=== PATIENT | female | born 1965 | race Caucasian/White ===

== ENCOUNTER 2018-03-22 08:42 | Outpatient (CLI) | payer OTHER ==
[2018-03-22 09:15] LABS: BASOPHILS % (AUTO) 0.2 % (0-1); EOSINOPHILS # (AUTO) 0.3 X10'3 (0-0.9); EOSINOPHILS % (AUTO) 3.6 % (0-6); HEMATOCRIT 38.5 % (35.0-45.0); LYMPHOCYTES # (AUTO) 1.7 X10'3 (1.1-4.8); LYMPHOCYTES % (AUTO) 22.7 % (21-51); MEAN CORPUSCULAR HEMOGLOBIN 27.7 PG (27.0-31.0); MEAN CORPUSCULAR HGB CONC 33.9 % (33.0-36.5); MEAN CORPUSCULAR VOLUME 81.7 FL (78-98); MEAN PLATELET VOLUME 7.8 FL (7.4-10.4); MONOCYTES # (AUTO) 0.5 X10'3 (0-0.9); MONOCYTES % (AUTO) 6.4 % (2-12); NEUTROPHILS % (AUTO) 67.1 % (42-75); PLATELET COUNT 220 X10'3 (140-440); RED BLOOD COUNT 4.71 X10'6 (4.20-5.60); RED CELL DISTRIBUTION WIDTH 15.2 % (11.5-14.5); WHITE BLOOD COUNT 7.5 X10'3 (4.5-11.0)
[2018-03-22 09:18] LABS: CLARITY,URINE CLEAR (Clear); COLOR,URINE YELLOW (Yellow); GLUCOSE, URINE NEGATIVE (Neg); KETONES,URINE NEGATIVE (Neg); LEUKOCYTE ESTERASE ,URINE NEGATIVE (Neg); NITRITES, URINE NEGATIVE (Neg); OCCULT BLOOD,URINE NEGATIVE (Neg); PROTEIN,URINE NEGATIVE (Neg)
[2018-03-22 09:20] LABS: UA COLLECTION TYPE CLN CATCH MIDSTREAM
[2018-03-22 09:51] LABS: ALANINE AMINOTRANSFERASE 19 U/L (12-78); ALBUMIN 3.5 G/DL (3.4-5.0); ALBUMIN/GLOBULIN RATIO 0.9 (1.1-1.5); ALKALINE PHOSPHATASE 64 IU/L (46-116); ANION GAP 7 (8-16); ASPARTATE AMINO TRANSFERASE 13 U/L (10-37); BILIRUBIN,TOTAL 0.5 MG/DL (0.1-1.0); BLOOD UREA NITROGEN 17 MG/DL (7-18); BUN/CREATININE RATIO 19.1 (6.6-38.0); CALCIUM 8.8 MG/DL (8.5-10.1); CHLORIDE 105 MMOL/L (99-107); CHOLESTEROL 181 MG/DL (0-200); CREATININE 0.89 MG/DL (0.40-0.90); GLUCOSE 119 MG/DL (70-104); HDL CHOLESTEROL 36 MG/DL (35-60); LDL CHOLESTEROL 133 MG/DL (50-100); POTASSIUM 4.1 MMOL/L (3.5-5.1); SODIUM 138 MMOL/L (135-145); TOTAL CARBON DIOXIDE 26.4 MMOL/L (24-32); TOTAL PROTEIN 7.3 G/DL (6.4-8.2); TRIGLYCERIDES 88 MG/DL (20-135); eGFR 67 ML/MIN
== END 2018-03-22 23:59 | disposition home or self-care (01) ==
LOC: LAB 08:42
PROVIDERS: ATTEND Family Medicine
DX: Z00.01 Encounter for general adult medical examination with abnormal findings (principal)
CPT/HCPCS: 36415; 80053; 80061; 81003; 84439; 84443; 85025

== ENCOUNTER 2018-04-18 10:04 | Outpatient (CLI) | payer OTHER | END 2018-04-18 23:59 | disposition home or self-care (01) | LOC: CARD DIAG 10:04 | PROVIDERS: ATTEND Family Medicine | DX: I07.1 Rheumatic tricuspid insufficiency (principal); R53.83 Other fatigue | CPT/HCPCS: 93306 ==

== ENCOUNTER 2018-10-06 05:36 | Day surgery (SDC) | payer OTHER ==
[2018-09-29 12:58] LABS: BASOPHILS % (AUTO) 0.4 % (0-1); EOSINOPHILS # (AUTO) 0.4 X10'3 (0-0.9); EOSINOPHILS % (AUTO) 5.5 % (0-6); LYMPHOCYTES # (AUTO) 1.7 X10'3 (1.1-4.8); LYMPHOCYTES % (AUTO) 25.1 % (21-51); MEAN CORPUSCULAR HEMOGLOBIN 27.5 PG (27.0-31.0); MEAN CORPUSCULAR HGB CONC 33.1 g/dL (33.0-36.5); MEAN PLATELET VOLUME 7.9 FL (7.4-10.4); MONOCYTES # (AUTO) 0.4 X10'3 (0-0.9); MONOCYTES % (AUTO) 5.5 % (2-12); NEUTROPHILS # (AUTO) 4.3 X10'3 (1.8-7.7); NEUTROPHILS % (AUTO) 63.5 % (42-75); PRE OP HEMATOCRIT 43.4 % (35.0-45.0); PRE OP HEMOGLOBIN 14.4 g/dL (12.0-16.0); PRE OP PLATELET COUNT 246 X10'3 (140-440); RED BLOOD COUNT 5.23 X10'6 (4.20-5.60); RED CELL DISTRIBUTION WIDTH 14.1 % (11.5-14.5)
[2018-09-29 13:05] LABS: ALBUMIN 4.2 G/DL (3.4-5.0); ALBUMIN/GLOBULIN RATIO 1.1 (1.1-1.5); ALKALINE PHOSPHATASE 78 IU/L (46-116); BLOOD UREA NITROGEN 19 MG/DL (7-18); BUN/CREATININE RATIO 20.2 (6.6-38.0); CALCIUM 9.3 MG/DL (8.5-10.1); CHLORIDE 102 MMOL/L (99-107); CREATININE 0.94 MG/DL (0.40-0.90); PRE OP ALT 30 U/L (30-65); PRE OP ANION GAP 9 (8-16); PRE OP AST 27 U/L (10-37); PRE OP BILIRUB, TOTAL 0.6 MG/DL (0.0-1.0); PRE OP GLUCOSE 128 MG/DL (70-104); PRE OP POTASSIUM 4.3 MMOL/L (3.4-5.1); PRE OP SODIUM 140 MMOL/L (135-145); TOTAL CARBON DIOXIDE 28.7 MMOL/L (24-32); TOTAL PROTEIN 8.2 G/DL (6.4-8.2); eGFR 63 ML/MIN
[~2018-10-06] VITALS: Ht 162.6 cm; Wt 93.4 kg
[~2018-10-06 05:36] MED LIST: ZOLP10TA5 PO; cefazolin/dext.iso 2gm/50ml 50 ML IV ONE; famotidine 20mg tablet PO ONE; ringers solution, lacted 1,000 ML IV SCH
[2018-10-06] MEDS ORDERED: LIDOcaine 1% (10mg/ml) 2ml vial ONE (05:52)
[2018-10-06] MEDS ORDERED: BUPIVAcaine/PF 2.5mg/ml (0.25%) 10ml vial ONE (06:41)
[2018-10-06 07:05] VITALS: BP 113/61
[2018-10-06] MEDS ORDERED: acetaminophen 1000 MG/100ml vial IV ONE (07:12)
[2018-10-06] MEDS ORDERED: LIDOcaine 1% 30ml preserv. free vial ONE (07:22)
[2018-10-06] MEDS ORDERED: fentaNYL/PF 50MCG/1 ML 2ML syringe ONE (07:23)
[2018-10-06] MEDS ORDERED: MIDAZolam 5mg/5ml vial ONE (07:23)
[2018-10-06] MEDS ORDERED: ketorolac trometh. 30mg/ml inj. ONE (07:26)
[2018-10-06] MEDS ORDERED: propofol inj 20 ML IV ONE (07:37)
[2018-10-06] MEDS ORDERED: ringers solution, lacted 1,000 ML IV SCH (07:56)
[2018-10-06] MEDS ORDERED: morphine 4 MG/ML inj SYRINge IV PRN ×2 (08:00)
[2018-10-06] MEDS ORDERED: proCHLORperazine 10 MG/2 ml inj IV PRN (08:00)
[2018-10-06] MEDS ORDERED: meperidine/PF 25mg/ml syringe IV PRN ×3 (08:00)
[2018-10-06] MEDS ORDERED: ondansetron/PF 4mg/2ml inj IV PRN (08:00)
[2018-10-06 08:10] VITALS: BP 92/60
--- NOTE | 2018-10-06 08:10 | NUR ---
Received from OR via BED, accompanied by Anesthesiologist DR SOLIS and report given by Anesthesiolgist. PATIENT A&OX4, DENIES PAIN, V/S WNL, NEUROVASCULAR CHECKS INTACT, 20G PIV LUE, SCD ON, DRESSING TO RIGHT WRIST CDI ELEVATED WITH ICEBAG APPLIED.
[2018-10-06 08:20] VITALS: BP 103/63
[2018-10-06 08:30] VITALS: BP 106/65
--- NOTE | 2018-10-06 08:30 | NUR ---
PATIENT A&OX4, DENIES PAIN, V/S WNL, NEUROVASCULAR CHECKS INTACT, 20G PIV LUE D/C, SCD OFF, DRESSING TO RIGHT WRIST CDI ELEVATED WITH ICEBAG APPLIED. I HAVE REVIEWED D/C INSTRUCTIONS WITH PATIENT AND FAMILY AND THEY HAVE VERBALIZED UNDERSTANDING. PATIENT D/C HOME WITH ALL BELONGINGS AND FAMILY GAVE TRANSPORT HOME.
== END 2018-10-06 08:30 | disposition home or self-care (01) ==
LOC: PAS 05:36
PROVIDERS: ATTEND Orthopaedic Surgery Hand Surgery
DX: G56.01 Carpal tunnel syndrome, right upper limb (principal); G56.21 Lesion of ulnar nerve, right upper limb; Z91.040 Latex allergy status; Z79.899 Other long term (current) drug therapy
CPT/HCPCS: 29848; 36415; 64718; 80053; 82948; 85025; 93005; A6449; J0131; J0690; J1885; J2250; J2704; J3010; J3490; A7000; J7120

== ENCOUNTER 2018-11-07 09:59 | Emergency (ER) | payer OTHER ==
[~2018-11-07] VITALS: Ht 162.6 cm; Wt 89.0 kg
[~2018-11-07 09:59] MED LIST changes: -cefazolin/dext.iso 2gm/50ml 50 ML IV ONE; -famotidine 20mg tablet PO ONE; -ringers solution, lacted 1,000 ML IV SCH
[2018-11-07] MEDS ORDERED: TETRACAINE 0.5% 5 ML OPHTHALMIC DROPS LEFTEYE ONE (10:40)
[2018-11-07] MEDS ORDERED: proparacaine 0.5% ophthalmic drops 15ml LEFTEYE ONE (10:45)
[2018-11-07 11:32] VITALS: BP 126/80
--- NOTE | 2018-11-07 11:37 | NUR ---
left eye has abrasion , eye drop to left eye
[2018-11-07] MEDS ORDERED: ciprofloxacin 0.3% 2.5ml ophthalmic solution RIGHTEYE SCH (12:00)
[2018-11-08] MEDS ORDERED: HYDR-3965 PO (14:23)
== END 2018-11-07 11:39 | disposition home or self-care (01) ==
LOC: ER 10:00
DX: S05.02XA Injury of conjunctiva and corneal abrasion without foreign body, left eye, initial encounter (principal); Z90.49 Acquired absence of other specified parts of digestive tract; Z91.040 Latex allergy status; Z91.030 Bee allergy status; W22.8XXA Striking against or struck by other objects, initial encounter; Y93.89 Activity, other specified; Y92.69 Other specified industrial and construction area as the place of occurrence of the external cause; Y99.8 Other external cause status
CPT/HCPCS: 99283

== ENCOUNTER → 2019-04-10 | Day surgery (SDC) | payer OTHER ==
[~2019-04-10] MED LIST changes: +LIDOcaine 1%/PF 5ML 10 MG/ML VIAL ONE; +iohexol 300 MG/1 ML 10ml vial ONE
== END | disposition home or self-care (01) ==
LOC: RAD 08:48
PROVIDERS: ATTEND Orthopaedic Surgery Hand Surgery
DX: M25.531 Pain in right wrist (principal); S63.591A Other specified sprain of right wrist, initial encounter; X58.XXXA Exposure to other specified factors, initial encounter; Y93.89 Activity, other specified; Y92.89 Other specified places as the place of occurrence of the external cause
CPT/HCPCS: 73115; 73222; Q9967

== ENCOUNTER 2019-04-11 08:30 | Outpatient (CLI) | payer OTHER ==
[~2019-04-11 08:30] MED LIST changes: -LIDOcaine 1%/PF 5ML 10 MG/ML VIAL ONE; -iohexol 300 MG/1 ML 10ml vial ONE
[2019-04-11 09:39] LABS: CLARITY,URINE CLEAR (Clear); COLOR,URINE YELLOW (Yellow); GLUCOSE, URINE NEGATIVE (Neg); KETONES,URINE NEGATIVE (Neg); LEUKOCYTE ESTERASE ,URINE NEGATIVE (Neg); NITRITES, URINE NEGATIVE (Neg); OCCULT BLOOD,URINE NEGATIVE (Neg); PH,URINE 6.5 (4.8-8.0); PROTEIN,URINE NEGATIVE (Neg)
[2019-04-11 09:48] LABS: UA COLLECTION TYPE CLN CATCH MIDSTREAM
[2019-04-11 09:49] LABS: BASOPHILS % (AUTO) 0.5 % (0-1); EOSINOPHILS # (AUTO) 0.4 X10'3 (0-0.9); EOSINOPHILS % (AUTO) 6.5 % (0-6); HEMATOCRIT 44.5 % (35.0-45.0); HEMOGLOBIN 14.9 g/dl (12.0-16.0); LYMPHOCYTES # (AUTO) 1.8 X10'3 (1.1-4.8); LYMPHOCYTES % (AUTO) 27.1 % (21-51); MEAN CORPUSCULAR HEMOGLOBIN 27.9 PG (27.0-31.0); MEAN CORPUSCULAR HGB CONC 33.4 g/dL (33.0-36.5); MEAN CORPUSCULAR VOLUME 83.7 FL (78-98); MEAN PLATELET VOLUME 7.2 FL (7.4-10.4); MONOCYTES # (AUTO) 0.4 X10'3 (0-0.9); MONOCYTES % (AUTO) 5.5 % (2-12); NEUTROPHILS # (AUTO) 4.1 X10'3 (1.8-7.7); NEUTROPHILS % (AUTO) 60.4 % (42-75); PLATELET COUNT 267 X10'3 (140-440); RED BLOOD COUNT 5.32 X10'6 (4.20-5.60); WHITE BLOOD COUNT 6.8 X10'3 (4.5-11.0)
[2019-04-11 10:00] LABS: ALANINE AMINOTRANSFERASE 27 U/L (12-78); ALKALINE PHOSPHATASE 63 IU/L (46-116); ANION GAP 6 (8-16); ASPARTATE AMINO TRANSFERASE 11 U/L (10-37); BILIRUBIN,TOTAL 0.4 MG/DL (0.1-1.0); BLOOD UREA NITROGEN 17 MG/DL (7-18); BUN/CREATININE RATIO 18.9 (6.6-38.0); CALCIUM 8.8 MG/DL (8.5-10.1); CHLORIDE 106 MMOL/L (99-107); CHOL/HDL RATIO 5.4 (0.00-4.99); CHOLESTEROL 209 MG/DL (0-200); GLUCOSE 115 MG/DL (70-104); HDL CHOLESTEROL 39 MG/DL (35-60); LDL CHOLESTEROL 146 MG/DL (50-100); POTASSIUM 4.3 MMOL/L (3.5-5.1); SODIUM 142 MMOL/L (135-145); TOTAL CARBON DIOXIDE 30.2 MMOL/L (24-32); TRIGLYCERIDES 123 MG/DL (20-135); eGFR 66 ML/MIN
== END 2019-04-11 23:59 | disposition home or self-care (01) ==
LOC: LAB 08:30
PROVIDERS: ATTEND Family Medicine
DX: Z00.00 Encounter for general adult medical examination without abnormal findings (principal)
CPT/HCPCS: 36415; 80053; 80061; 81003; 84439; 84443; 85025

== ENCOUNTER 2019-06-09 22:57 | Emergency (ER) | payer OTHER ==
[~2019-06-09] VITALS: Ht 162.6 cm; Wt 95.0 kg
[2019-06-09] MEDS ORDERED: normal saline 1000ML IV soln IVB ONE ×2 (23:20)
[2019-06-09] MEDS ORDERED: diphenhydrAMINE 50 mg/ml inj IV ONE (23:20)
[2019-06-09] MEDS ORDERED: metoclopramide 5 mg/ml inj IV ONE (23:20)
[2019-06-09] MEDS ORDERED: glycopyrrolate 0.2mg/ml inj IV ONE (23:20)
[2019-06-09] MEDS ORDERED: ketorolac trometh. 30mg/ml inj. IV ONE (23:20)
[2019-06-09 23:41] LABS: BASOPHILS % (AUTO) 0.1 % (0-1); EOSINOPHILS # (AUTO) 0.2 X10'3 (0-0.9); HEMATOCRIT 43.5 % (35.0-45.0); HEMOGLOBIN 14.5 g/dl (12.0-16.0); LYMPHOCYTES # (AUTO) 0.5 X10'3 (1.1-4.8); LYMPHOCYTES % (AUTO) 5.8 % (21-51); MEAN CORPUSCULAR HEMOGLOBIN 28.2 PG (27.0-31.0); MEAN CORPUSCULAR HGB CONC 33.4 g/dL (33.0-36.5); MEAN CORPUSCULAR VOLUME 84.3 FL (78-98); MEAN PLATELET VOLUME 7.8 FL (7.4-10.4); MONOCYTES # (AUTO) 0.4 X10'3 (0-0.9); MONOCYTES % (AUTO) 4.5 % (2-12); NEUTROPHILS % (AUTO) 87.6 % (42-75); PLATELET COUNT 195 X10'3 (140-440); RED BLOOD COUNT 5.16 X10'6 (4.20-5.60)
[2019-06-09 23:53] LABS: ALANINE AMINOTRANSFERASE 28 U/L (12-78); ALBUMIN 3.8 G/DL (3.4-5.0); ALBUMIN/GLOBULIN RATIO 0.9 (1.1-1.5); ALKALINE PHOSPHATASE 67 IU/L (46-116); ANION GAP 12 (8-16); ASPARTATE AMINO TRANSFERASE 18 U/L (10-37); BILIRUBIN,TOTAL 0.6 MG/DL (0.1-1.0); BLOOD UREA NITROGEN 23 MG/DL (7-18); BUN/CREATININE RATIO 21.1 (6.6-38.0); CALCIUM 8.9 MG/DL (8.5-10.1); CHLORIDE 102 MMOL/L (99-107); CREATININE 1.09 MG/DL (0.40-0.90); GLUCOSE 194 MG/DL (70-104); SODIUM 140 MMOL/L (135-145); TOTAL CARBON DIOXIDE 26.4 MMOL/L (24-32); TOTAL PROTEIN 7.9 G/DL (6.4-8.2); eGFR 53 ML/MIN
[2019-06-10 00:43] LABS: URINE HCG NEGATIVE (NEG)
[2019-06-10 00:50] LABS: CLARITY,URINE CLEAR (Clear); COLOR,URINE YELLOW (Yellow); GLUCOSE, URINE NEGATIVE (Neg); KETONES,URINE 15 mg/dl (Neg); LEUKOCYTE ESTERASE ,URINE NEGATIVE (Neg); NITRITES, URINE NEGATIVE (Neg); OCCULT BLOOD,URINE NEGATIVE (Neg); PH,URINE 8.5 (4.8-8.0); PROTEIN,URINE NEGATIVE (Neg); UROBILINOGEN,URINE 0.2 E.U/dL (0.2-1.0)
[2019-06-10 00:58] LABS: UA COLLECTION TYPE CLN CATCH MIDSTREAM
[2019-06-10] MEDS ORDERED: ONDA4TAB12 PO (01:27)
[2019-06-10] MEDS ORDERED: DICY10CA88 PO (01:27)
[2019-06-10] MEDS ORDERED: ondansetron 4mg rapidly disintigrating tab PO ONE (01:30)
[2019-06-10 01:40] VITALS: BP 132/71
== END 2019-06-10 01:53 | disposition home or self-care (01) ==
LOC: ER 22:59
DX: R10.31 Right lower quadrant pain (principal); R11.2 Nausea with vomiting, unspecified; Z90.49 Acquired absence of other specified parts of digestive tract; Z98.890 Other specified postprocedural states; Z79.899 Other long term (current) drug therapy
CPT/HCPCS: 36415; 80053; 81003; 81025; 85025; 85610; 96361; 96374; 96375; 99283; J1200; J1885; J2765; J3490; J7030

== ENCOUNTER 2019-08-30 08:38 | Emergency (ER) | payer OTHER ==
[~2019-08-30] VITALS: Ht 162.6 cm; Wt 96.4 kg
[~2019-08-30 08:38] MED LIST changes: +ONDA4TAB12 PO
[2019-08-30 08:47] VITALS: BP 126/57
== END 2019-08-30 09:13 | disposition home or self-care (01) ==
LOC: ER 08:38
DX: S61.431A Puncture wound without foreign body of right hand, initial encounter (principal); Z90.49 Acquired absence of other specified parts of digestive tract; Z98.890 Other specified postprocedural states; Z79.899 Other long term (current) drug therapy; W46.0XXA Contact with hypodermic needle, initial encounter; Y93.89 Activity, other specified; Y92.89 Other specified places as the place of occurrence of the external cause; Y99.8 Other external cause status
CPT/HCPCS: 99281

== ENCOUNTER 2019-10-12 05:45 | Day surgery (SDC) | payer OTHER ==
[2019-10-09 10:35] LABS: BASOPHILS % (AUTO) 0.5 % (0-1); EOSINOPHILS # (AUTO) 0.5 X10'3 (0-0.9); EOSINOPHILS % (AUTO) 6.9 % (0-6); LYMPHOCYTES # (AUTO) 1.8 X10'3 (1.1-4.8); LYMPHOCYTES % (AUTO) 27.7 % (21-51); MEAN CORPUSCULAR HEMOGLOBIN 27.7 PG (27.0-31.0); MEAN CORPUSCULAR HGB CONC 33.2 g/dL (33.0-36.5); MEAN CORPUSCULAR VOLUME 83.5 FL (78-98); MEAN PLATELET VOLUME 7.8 FL (7.4-10.4); MONOCYTES # (AUTO) 0.4 X10'3 (0-0.9); MONOCYTES % (AUTO) 6.5 % (2-12); NEUTROPHILS # (AUTO) 3.8 X10'3 (1.8-7.7); NEUTROPHILS % (AUTO) 58.4 % (42-75); PRE OP HEMATOCRIT 42.2 % (35.0-45.0); PRE OP PLATELET COUNT 275 X10'3 (140-440); RED BLOOD COUNT 5.06 X10'6 (4.20-5.60)
[2019-10-09 10:51] LABS: ALBUMIN 3.9 G/DL (3.4-5.0); ALKALINE PHOSPHATASE 68 IU/L (46-116); BLOOD UREA NITROGEN 14 MG/DL (7-18); BUN/CREATININE RATIO 16.3 (6.6-38.0); CALCIUM 9.4 MG/DL (8.5-10.1); CHLORIDE 106 MMOL/L (99-107); CREATININE 0.86 MG/DL (0.40-0.90); PRE OP ALT 29 U/L (30-65); PRE OP ANION GAP 9 (8-16); PRE OP AST 17 U/L (10-37); PRE OP BILIRUB, TOTAL 0.3 MG/DL (0.0-1.0); PRE OP GLUCOSE 142 MG/DL (70-104); PRE OP POTASSIUM 4.5 MMOL/L (3.4-5.1); PRE OP SODIUM 141 MMOL/L (135-145); TOTAL CARBON DIOXIDE 26.1 MMOL/L (24-32); TOTAL PROTEIN 7.9 G/DL (6.4-8.2); eGFR 69 ML/MIN
[2019-10-12] VITALS (8 sets, daily range): BP systolic 93–108; BP diastolic 46–77
[~2019-10-12] VITALS: Ht 162.6 cm; Wt 95.3 kg
[~2019-10-12 05:45] MED LIST changes: +LORA10TA65 PO; -ONDA4TAB12 PO; -ZOLP10TA5 PO; +ZOLP5TAB8 PO; +cefazolin/dext.iso 2gm/50ml 50 ML IV ONE; +famotidine 20mg tablet PO ONE; +ringers solution, lacted 1,000 ML IV SCH
[2019-10-12] MEDS ORDERED: LIDOcaine 1% (10mg/ml) 2ml vial ONE (06:29)
[2019-10-12] MEDS ORDERED: BUPIVAcaine/PF 2.5mg/ml (0.25%) 10ml vial ONE (06:42)
[2019-10-12] MEDS ORDERED: LIDOcaine 0.5% (5mg/ml) 50ml vial ONE (07:36)
[2019-10-12] MEDS ORDERED: MIDAZolam 5mg/5ml vial ONE (07:37)
[2019-10-12] MEDS ORDERED: fentaNYL/PF 50MCG/1 ML 2ML syringe ONE ×2 (07:37→07:59)
--- NOTE | 2019-10-12 08:10 | NUR ---
Received from OR via hiren, accompanied by Anesthesiologist Richard and report given by Anesthesiolgist. Pt responsive but sleepy, all VS WNL, on RA and sats greater than 96%, good cap refill to fingers on surgical arm. 20G to left wrist with 100cc/hr LR IVF.
--- NOTE | 2019-10-12 09:20 | NUR ---
Pt discharged to vehicle by wheelchair without incident. IV DC'd, pt and S/O verbalized understanding of discharge instructions. Dressing remains CDI, patient has good sensation and motor movement, good cap refill to fingers. Pt back in her own clothing, tolerated fluids, ambulated. Received a pain med script by patient. They know to follow up in 10 days.
== END 2019-10-12 09:20 | disposition home or self-care (01) ==
LOC: PAS 05:45
PROVIDERS: ATTEND Orthopaedic Surgery Hand Surgery
DX: S63.591A Other specified sprain of right wrist, initial encounter (principal); G47.33 Obstructive sleep apnea (adult) (pediatric); F43.10 Post-traumatic stress disorder, unspecified; Z90.49 Acquired absence of other specified parts of digestive tract; Z91.040 Latex allergy status; Z98.890 Other specified postprocedural states; Z79.899 Other long term (current) drug therapy; Z72.89 Other problems related to lifestyle; X58.XXXA Exposure to other specified factors, initial encounter; Y93.89 Activity, other specified; Y92.89 Other specified places as the place of occurrence of the external cause; Y99.8 Other external cause status
CPT/HCPCS: 29846; 36415; 80053; 82948; 85025; 93005; J2001; J2250; J3010; J3490; J7120; A4215; A4615; A4618; A6449; A7000

== ENCOUNTER 2020-02-19 13:39 | Outpatient (CLI) | payer BC ==
[~2020-02-19 13:39] MED LIST changes: -cefazolin/dext.iso 2gm/50ml 50 ML IV ONE; -famotidine 20mg tablet PO ONE; -ringers solution, lacted 1,000 ML IV SCH
== END 2020-02-19 23:59 | disposition home or self-care (01) ==
LOC: RAD 13:39
PROVIDERS: ATTEND Family Medicine
DX: S46.001A Unspecified injury of muscle(s) and tendon(s) of the rotator cuff of right shoulder, initial encounter (principal); X58.XXXA Exposure to other specified factors, initial encounter; Y93.89 Activity, other specified; Y92.89 Other specified places as the place of occurrence of the external cause; Y99.8 Other external cause status
CPT/HCPCS: 73221

== ENCOUNTER 2020-07-29 09:53 | Outpatient (CLI) | payer BC ==
[2020-07-29 10:54] LABS: CLARITY,URINE CLEAR (Clear); COLOR,URINE YELLOW (Yellow); GLUCOSE, URINE NEGATIVE (Neg); KETONES,URINE NEGATIVE (Neg); LEUKOCYTE ESTERASE ,URINE NEGATIVE (Neg); NITRITES, URINE NEGATIVE (Neg); OCCULT BLOOD,URINE TRACE-INTACT (Neg); PH,URINE 7.5 (4.8-8.0); PROTEIN,URINE NEGATIVE (Neg); UROBILINOGEN,URINE 0.2 E.U/dL (0.2-1.0)
[2020-07-29 10:57] LABS: BASOPHILS % (AUTO) 0.4 % (0-1); EOSINOPHILS # (AUTO) 0.2 X10'3 (0-0.9); EOSINOPHILS % (AUTO) 3.4 % (0-6); HEMATOCRIT 44.9 % (35.0-45.0); HEMOGLOBIN 15.1 g/dl (12.0-16.0); LYMPHOCYTES # (AUTO) 1.6 X10'3 (1.1-4.8); LYMPHOCYTES % (AUTO) 22.3 % (21-51); MEAN CORPUSCULAR HEMOGLOBIN 28.2 PG (27.0-31.0); MEAN CORPUSCULAR HGB CONC 33.6 g/dL (33.0-36.5); MEAN PLATELET VOLUME 7.5 FL (7.4-10.4); MONOCYTES # (AUTO) 0.5 X10'3 (0-0.9); MONOCYTES % (AUTO) 6.4 % (2-12); NEUTROPHILS # (AUTO) 4.9 X10'3 (1.8-7.7); NEUTROPHILS % (AUTO) 67.5 % (42-75); PLATELET COUNT 259 X10'3 (140-440); RED BLOOD COUNT 5.34 X10'6 (4.20-5.60); RED CELL DISTRIBUTION WIDTH 14.1 % (11.5-14.5); WHITE BLOOD COUNT 7.2 X10'3 (4.5-11.0)
[2020-07-29 11:16] LABS: ALANINE AMINOTRANSFERASE 21 U/L (12-78); ALKALINE PHOSPHATASE 85 IU/L (46-116); ANION GAP 8 (8-16); ASPARTATE AMINO TRANSFERASE 19 U/L (10-37); BILIRUBIN,TOTAL 0.4 MG/DL (0.1-1.0); BLOOD UREA NITROGEN 18 MG/DL (7-18); CHLORIDE 104 MMOL/L (99-107); CHOL/HDL RATIO 5.4 (0.00-4.99); CHOLESTEROL 279 MG/DL (0-200); GLUCOSE 106 MG/DL (70-104); HDL CHOLESTEROL 52 MG/DL (35-60); POTASSIUM 4.5 MMOL/L (3.5-5.1); SODIUM 138 MMOL/L (135-145); TOTAL CARBON DIOXIDE 25.9 MMOL/L (24-32); TOTAL PROTEIN 8.2 G/DL (6.4-8.2); TRIGLYCERIDES 143 MG/DL (20-135)
[2020-07-29 11:35] LABS: BUN/CREATININE RATIO 15.7 (6.6-38.0); CALCIUM 9.1 MG/DL (8.5-10.1); CREATININE 1.15 MG/DL (0.40-0.90); LDL CHOLESTEROL 184 MG/DL (50-100); eGFR 49 ML/MIN
[2020-07-29 11:58] LABS: UA COLLECTION TYPE CLN CATCH MIDSTREAM
[2020-07-29 12:02] LABS: MUCUS STRANDS FEW /LPF (Neg); SQUAMOUS EPITHELIAL CELL,UR FEW /LPF (FEW)
[2020-07-29 12:05] LABS: BACTERIA,URINE NONE SEEN /HPF (Neg); RBC,URINE 0-2 /HPF (0-2); WBC,URINE 0-4 /HPF (0-4)
== END 2020-07-29 23:59 | disposition home or self-care (01) ==
LOC: LAB 09:53
PROVIDERS: ATTEND Family Medicine
DX: R53.1 Weakness (principal); R53.83 Other fatigue
CPT/HCPCS: 36415; 80053; 80061; 81001; 84439; 84443; 85025

== ENCOUNTER 2021-07-27 07:39 | Outpatient (CLI) | payer BC ==
[2021-07-27 08:05] LABS: COLOR,URINE YELLOW (Yellow); GLUCOSE, URINE NEGATIVE (Neg); KETONES,URINE TRACE mg/dl (Neg); LEUKOCYTE ESTERASE ,URINE NEGATIVE (Neg); NITRITES, URINE NEGATIVE (Neg); OCCULT BLOOD,URINE NEGATIVE (Neg); PROTEIN,URINE NEGATIVE (Neg); UROBILINOGEN,URINE 0.2 E.U/dL (0.2-1.0)
[2021-07-27 08:12] LABS: BASOPHILS % (AUTO) 0.5 % (0-1); EOSINOPHILS # (AUTO) 0.4 X10'3 (0-0.9); EOSINOPHILS % (AUTO) 6.3 % (0-6); HEMATOCRIT 40.2 % (35.0-45.0); HEMOGLOBIN 13.9 g/dl (12.0-16.0); LYMPHOCYTES # (AUTO) 1.8 X10'3 (1.1-4.8); LYMPHOCYTES % (AUTO) 28.6 % (21-51); MEAN CORPUSCULAR HGB CONC 34.5 g/dL (33.0-36.5); MEAN CORPUSCULAR VOLUME 84.1 FL (78-98); MEAN PLATELET VOLUME 7.3 FL (7.4-10.4); MONOCYTES # (AUTO) 0.4 X10'3 (0-0.9); MONOCYTES % (AUTO) 6.5 % (2-12); NEUTROPHILS # (AUTO) 3.6 X10'3 (1.8-7.7); NEUTROPHILS % (AUTO) 58.1 % (42-75); PLATELET COUNT 265 X10'3 (140-440); RED BLOOD COUNT 4.79 X10'6 (4.20-5.60); RED CELL DISTRIBUTION WIDTH 12.8 % (11.5-14.5); WHITE BLOOD COUNT 6.2 X10'3 (4.5-11.0)
[2021-07-27 09:11] LABS: ALANINE AMINOTRANSFERASE 16 U/L (12-78); ALBUMIN 3.6 G/DL (3.4-5.0); ALBUMIN/GLOBULIN RATIO 0.9 (1.1-1.5); ALKALINE PHOSPHATASE 85 IU/L (46-116); ANION GAP 7 (8-16); ASPARTATE AMINO TRANSFERASE 8 U/L (10-37); BILIRUBIN,TOTAL 0.2 MG/DL (0.1-1.0); BLOOD UREA NITROGEN 20 MG/DL (7-18); BUN/CREATININE RATIO 16.7 (6.6-38.0); CALCIUM 8.4 MG/DL (8.5-10.1); CHLORIDE 105 MMOL/L (99-107); CHOL/HDL RATIO 6.2 (0.00-4.99); CHOLESTEROL 242 MG/DL (0-200); GLUCOSE 120 MG/DL (70-104); HDL CHOLESTEROL 39 MG/DL (35-60); LDL CHOLESTEROL 148 MG/DL (50-100); SODIUM 138 MMOL/L (135-145); TOTAL CARBON DIOXIDE 26.3 MMOL/L (24-32); TOTAL PROTEIN 7.6 G/DL (6.4-8.2); TRIGLYCERIDES 357 MG/DL (20-135); eGFR 47 ML/MIN
[2021-07-27 09:33] LABS: UA COLLECTION TYPE CLN CATCH MIDSTREAM
[2021-07-27 09:34] LABS: CLARITY,URINE SLIGHTLY CLOUDY (Clear)
[2021-07-27 09:42] LABS: BACTERIA,URINE 2+ /HPF (Neg); MUCUS STRANDS MANY /LPF (Neg); RBC,URINE NONE SEEN /HPF (0-2); SQUAMOUS EPITHELIAL CELL,UR MANY /LPF (FEW)
== END 2021-07-27 23:59 | disposition home or self-care (01) ==
LOC: LAB 07:39
PROVIDERS: ATTEND Family Medicine
DX: Z00.01 Encounter for general adult medical examination with abnormal findings (principal)
CPT/HCPCS: 36415; 80053; 80061; 81001; 84439; 84443; 85025

== ENCOUNTER 2022-05-18 13:18 | Outpatient (CLI) | payer BC | END 2022-05-18 23:59 | disposition home or self-care (01) | LOC: RAD 13:18 | PROVIDERS: ATTEND Nurse Practitioner | DX: M25.512 Pain in left shoulder (principal) | CPT/HCPCS: 73030 ==

== ENCOUNTER → 2023-06-10 | Outpatient (CLI) | payer BC ==
[2023-06-10 09:14] LABS: BILIRUBIN,URINE NEGATIVE (Neg); CLARITY,URINE SLIGHTLY CLOUDY (Clear); COLOR,URINE YELLOW (Yellow); GLUCOSE, URINE NEGATIVE (Neg); KETONES,URINE NEGATIVE (Neg); LEUKOCYTE ESTERASE ,URINE NEGATIVE (Neg); NITRITES, URINE NEGATIVE (Neg); OCCULT BLOOD,URINE TRACE-INTACT (Neg); PH,URINE 5.5 (4.8-8.0); PROTEIN,URINE NEGATIVE (Neg); UROBILINOGEN,URINE 0.2 E.U/dL (0.2-1.0)
[2023-06-10 09:16] LABS: BASOPHILS % (AUTO) 0.7 % (0-1); EOSINOPHILS # (AUTO) 0.2 X10'3 (0-0.9); HEMOGLOBIN 14.1 g/dl (12.0-16.0); LYMPHOCYTES # (AUTO) 1.9 X10'3 (1.1-4.8)
[2023-06-10 09:17] LABS: EOSINOPHILS % (AUTO) 3.5 % (0-6); HEMATOCRIT 42.6 % (35.0-45.0); LYMPHOCYTES % (AUTO) 28.7 % (21-51); MEAN CORPUSCULAR HEMOGLOBIN 28.3 PG (27.0-31.0); MEAN CORPUSCULAR HGB CONC 33.2 g/dL (33.0-36.5); MEAN CORPUSCULAR VOLUME 85.1 FL (78-98); MONOCYTES # (AUTO) 0.5 X10'3 (0-0.9); MONOCYTES % (AUTO) 6.9 % (2-12); NEUTROPHILS # (AUTO) 3.9 X10'3 (1.8-7.7); NEUTROPHILS % (AUTO) 60.2 % (42-75); PLATELET COUNT 249 X10'3 (140-440); RED CELL DISTRIBUTION WIDTH 13.5 % (11.5-14.5); WHITE BLOOD COUNT 6.5 X10'3 (4.5-11.0)
[2023-06-10 09:34] LABS: UA COLLECTION TYPE CLN CATCH MIDSTREAM
[2023-06-10 09:35] LABS: BACTERIA,URINE FEW /HPF (Neg); MUCUS STRANDS MODERATE /LPF (Neg); RBC,URINE 0-2 /HPF (0-2); SQUAMOUS EPITHELIAL CELL,UR MODERATE /LPF (FEW)
[2023-06-10 09:36] LABS: WBC,URINE 0-4 /HPF (0-4)
[2023-06-10 09:41] LABS: ALANINE AMINOTRANSFERASE 22 U/L (12-78); ALBUMIN 3.7 G/DL (3.4-5.0); ALBUMIN/GLOBULIN RATIO 0.9 (1.1-1.5); ALKALINE PHOSPHATASE 77 IU/L (46-116); ANION GAP 9 (8-16); ASPARTATE AMINO TRANSFERASE 25 U/L (10-37); BILIRUBIN,TOTAL 0.4 MG/DL (0.1-1.0); BLOOD UREA NITROGEN 18 MG/DL (7-18); BUN/CREATININE RATIO 15.8 (10.0-20.0); CALCIUM 9.2 MG/DL (8.5-10.1); CHLORIDE 102 MMOL/L (99-107); CHOL/HDL RATIO 4.6 (0.00-4.99); CHOLESTEROL 239 MG/DL (0-200); CREATININE 1.14 MG/DL (0.40-0.90); GLUCOSE 115 MG/DL (70-104); HDL CHOLESTEROL 52 MG/DL (35-60); LDL CHOLESTEROL 161 MG/DL (50-100); POTASSIUM 4.3 MMOL/L (3.5-5.1); SODIUM 135 MMOL/L (135-145); THYROID STIMULATING HORMONE 3.31 ulU/ml (0.34-4.50); TOTAL CARBON DIOXIDE 23.8 MMOL/L (24-32); TOTAL PROTEIN 7.8 G/DL (6.4-8.2); TRIGLYCERIDES 85 MG/DL (20-135); eGFR 49 ML/MIN
== END | disposition home or self-care (01) ==
LOC: LAB 08:17
PROVIDERS: ATTEND Registered Nurse
DX: Z00.00 Encounter for general adult medical examination without abnormal findings (principal)
CPT/HCPCS: 36415; 80053; 80061; 81001; 82306; 82607; 82746; 84443; 85025

== ENCOUNTER 2023-09-28 10:22 | Outpatient (CLI) | payer BC ==
[2023-09-28 12:25] LABS: ALANINE AMINOTRANSFERASE 16 U/L (12-78); ALBUMIN 3.6 G/DL (3.4-5.0); ALBUMIN/GLOBULIN RATIO 0.8 (1.1-1.5); ALKALINE PHOSPHATASE 77 IU/L (46-116); ANION GAP 13 (8-16); ASPARTATE AMINO TRANSFERASE 17 U/L (10-37); BILIRUBIN,TOTAL 0.4 MG/DL (0.1-1.0); BLOOD UREA NITROGEN 19 MG/DL (7-18); BUN/CREATININE RATIO 21.1 (10.0-20.0); CALCIUM 9.3 MG/DL (8.5-10.1); CHLORIDE 108 MMOL/L (99-107); GLUCOSE 112 MG/DL (70-104); POTASSIUM 4.3 MMOL/L (3.5-5.1); SODIUM 141 MMOL/L (135-145); TOTAL CARBON DIOXIDE 20.2 MMOL/L (24-32); TOTAL PROTEIN 7.9 G/DL (6.4-8.2); eGFR 65 ML/MIN
== END 2023-09-28 23:59 | disposition home or self-care (01) ==
LOC: LAB 10:22
PROVIDERS: ATTEND Registered Nurse
DX: N18.31 Chronic kidney disease, stage 3a (principal)
CPT/HCPCS: 36415; 80053